=== PATIENT | female | born 2000 | race Caucasian/White ===

== ENCOUNTER 2024-03-27 07:14 | Inpatient (IN) | payer SELFPAY ==
[2024-03-27] MEDS: Lactated Ringers 1,000 ML IV SCH (07:20)
[2024-03-27] MEDS ORDERED: Tranexamic Acid IN NACL,ISO-OS 1,000 MG in Premix Bag 1 BAG IV PRN (07:32)
[2024-03-27] MEDS ORDERED: Sodium Chloride 0.9% 20 ML SDV IV PRN (07:32)
[2024-03-27] MEDS ORDERED: Carboprost Tromethamine 250 MCG/1 mL Vial IM PRN (07:32)
[2024-03-27] MEDS ORDERED: Nalbuphine 10 MG/0.5 ML Syringe IVPUSH PRN (07:32)
[2024-03-27] MEDS ORDERED: Lidocaine 1% 50 ML MDV INJECT PRN (07:32)
[2024-03-27] MEDS ORDERED: Sodium Chloride 0.9% 2.5 ML Syringe FLUSH PRN (07:32)
[2024-03-27] MEDS ORDERED: Methylergonovine 0.2 MG/1 ML Amp IM PRN (07:32)
[2024-03-27] MEDS ORDERED: Sodium Chloride 0.9% 10 ML Syringe FLUSH PRN (07:32)
[2024-03-27] MEDS ORDERED: Misoprostol 200 MCG Tab PO PRN (07:32)
[2024-03-27] MEDS ORDERED: Water For Irrigation,Sterile 1,000 ML Container IRR PRN (07:32)
[2024-03-27] MEDS ORDERED: Ondansetron 4 MG/2 ML SDV IVPUSH PRN (07:32)
[2024-03-27 07:41] LABS: HEMOGLOBIN 13.3 g/dL (12.0-16.0); MEAN CORPUSCULAR HEMOGLOBIN 29.5 pg (28.0-32.0); MEAN CORPUSCULAR VOLUME 84.3 fL (83.0-99.0); MEAN PLATELET VOLUME 10.7 fL (9.4-12.3); PLATELET COUNT,PLT 201 K/uL (150-400); RED BLOOD CELL COUNT 4.51 M/uL (4.10-5.30); WHITE BLOOD CELL COUNT,WBC 13.19 K/uL (3.9-11.3)
[2024-03-27] MEDS: Oxytocin/0.9 % Sodium Chloride 30 UNIT/500 ML BAG IV SCH (07:46)
[2024-03-27] MEDS ORDERED: Docusate Sodium 100 MG Cap PO PRN (08:24)
[2024-03-27] MEDS ORDERED: oxyCODONE 5 MG Tab PO PRN (08:24)
[2024-03-27] MEDS ORDERED: Acetaminophen 500 MG Tab PO PRN (08:24)
[2024-03-27] MEDS ORDERED: Ibuprofen 800 MG Tab PO PRN (08:24)
[2024-03-27] MEDS ORDERED: Lanolin 100% Cream 7 GM Tube TOP PRN (08:24)
[2024-03-27] MEDS: Benzocaine/Menthol 20%-0.5% Spray 78 GM Cannister TOP PRN (09:54)
[2024-03-27] MEDS: Witch Hazel Medicated Pads 40/Jar TOP PRN (09:54)
[2024-03-28 05:54] LABS: HEMATOCRIT 35.3 % (37.0-47.0); HEMOGLOBIN 12.2 g/dL (12.0-16.0)
== END 2024-03-28 15:35 | disposition home or self-care (01) | DRG 807 ==
LOC: MW.OB 07:14 → OBSVTOIN 08:24 → MW.OB 11:09
PROVIDERS: ADMIT Obstetrics & Gynecology; ATTEND Obstetrics & Gynecology
PROC: 10E0XZZ Delivery of Products of Conception, External Approach (ICD-10-PCS; principal; 2024-03-27)
PROC: 3E033VJ Introduction of Other Hormone into Peripheral Vein, Percutaneous Approach (ICD-10-PCS; 2024-03-27)
DX: O48.1 Prolonged pregnancy (principal); Z37.0 Single live birth; O62.3 Precipitate labor; Z3A.49 Greater than 42 weeks gestation of pregnancy
CPT/HCPCS: 36415; 59025; 85014; 85018; 85027; 86592; 86850; 86900; 86901; A9270-GY; J2590; J7120